=== PATIENT | male | born 1980 | race Caucasian/White ===

== ENCOUNTER 2017-11-27 08:01 | Emergency (ER) | payer OTHER ==
[~2017-11-27 08:01] MED LIST: FIO PO; LOR5 PO; NO ROUTINE MEDS
[2017-11-27] MEDS ORDERED: NS(*) 0.9% 1000 ML BAG 1,000 ML IV ONE (08:15)
--- NOTE | 2017-11-27 08:15 | ER Report ---
History and Physical Time Seen By MD: 08:14 Hx. of Stated Complaint: abdo pain midline sternum to umbilicus 12 days, worsening HPI/ROS 37-year-old male with no medical problems presents with worsening 1-1/2 weeks of burning when he eats in his mid epigastric region. No recent antibiotics. No steroids. No right upper quadrant pain. No fever chills. Has not taken anything for the pain. He also states that he has had worsening reflux in the middle the night. He describes being woken up by midepigastric pain and a taste of vomit in his mouth that wakes him up at night. He said that his diet is okay. Drinks alcohol occasionally. Does not smoke or drink excessive caffeine. Does not take NSAIDs regularly. His never been checked for H. pylori. Allergies: Uncoded Allergies: JEFRY (Allergy, Severe, THROAT SWELLS, 10/29/07) Home Meds Discontinued Reported Medications [No Routine Meds] No Conflict Check 07/06/10 Hx Smoking: No Smoking Status: Never Smoker Hx Substance Use Disorder: No Hx Alcohol Use: Yes Constitutional Vital Sign - Last 24 Hours 11/27/17 11/27/17 11/27/17 11/27/17 08:01 08:06 08:06 08:15 Temp 97.8 Pulse ??? 66 Resp 16 B/P (MAP) 155/110 (125) 155/100 146/108 (121) Pulse Ox 90 O2 Delivery Room Air 11/27/17 11/27/17 11/27/17 11/27/17 08:16 08:30 08:31 08:45 Pulse 72 67 B/P (MAP) 144/101 (115) 146/100 (115) Pulse Ox 91 92 11/27/17 11/27/17 11/27/17 08:46 09:00 09:01 Pulse 66 62 B/P (MAP) 137/111 (120) Pulse Ox 94 91 Intake and Output 11/27/17 11/27/17 11/28/17 15:00 23:00 07:00 Intake Total 1000 ml Balance 1000 ml Physical Exam General Appearance: The patient is alert, has no immediate need for airway protection and no current signs of toxicity. Eyes: Pupils equal and round no injection. Respiratory: Chest is non tender, lungs are clear to auscultation. Cardiac: regular rate and rhythm Gastrointestinal: Abdomen is soft and non tender, no masses, bowel sounds normal. Neck: Neck is supple and non tender. Skin: No rashes or lesions. DIFFERENTIAL DIAGNOSIS: After history and physical exam differential diagnosis was considered for PUD, gallbladder disease, pancreatitis, GERD Medical Decision Making Data Points Result Diagram: 11/27/17 0825 11/27/17 0825 Laboratory Hematology Test 11/27/17 08:13 11/27/17 08:25 Urine Color Yellow Urine Clarity Clear Urine pH 5.0 pH (4.8-9.5) Urine Specific [place] 1.030 Urine Protein Negative mg/dL (NEGATIVE) Urine Glucose (UA) Negative mg/dL (NEGATIVE) Urine Ketones Negative mg/dL (NEGATIVE) Urine Blood Negative (NEGATIVE) Urine Nitrite Negative (NEGATIVE) Urine Bilirubin Negative (NEGATIVE) Urine Urobilinogen 2.0 mg/dL (0.2-1.9) Urine Leukocyte Esterase Negative (NEGATIVE) Urine RBC <1 /HPF (0-2/HPF) Urine WBC 3 /HPF (0-5/HPF) Urine Squamous Epithelial Cells Many /LPF (</=FEW) Urine Bacteria Negative /HPF (NONE-FEW) Urine Mucus Few /HPF (NONE-FEW) Red Blood Count 4.96 M/uL (4.00-5.60) Mean Corpuscular Volume 92.3 fL (80.0-96.0) Mean Corpuscular Hemoglobin 33.8 pg (26.0-33.0) Mean Corpuscular Hemoglobin Concent 36.6 g/dL (32.0-36.0) Red Cell Distribution Width 12.9 % (11.5-14.5) Mean Platelet Volume 8.5 fL (7.2-11.1) Neutrophils (%) (Auto) 59.1 % (39.4-72.5) Lymphocytes (%) (Auto) 28.7 % (17.6-49.6) Monocytes (%) (Auto) 6.5 % (4.1-12.4) Eosinophils (%) (Auto) 4.9 % (0.4-6.7) Basophils (%) (Auto) 0.8 % (0.3-1.4) Nucleated RBC Relative Count (auto) 0.0 /100WBC Neutrophils # (Auto) 3.9 K/uL (2.0-7.4) Lymphocytes # (Auto) 1.9 K/uL (1.3-3.6) Monocytes # (Auto) 0.4 K/uL (0.3-1.0) Eosinophils # (Auto) 0.3 K/uL (0.0-0.5) Basophils # (Auto) 0.0 K/uL (0.0-0.1) Nucleated RBC Absolute Count (auto) 0.00 K/uL Sodium Level 142 mmol/L (137-145) Potassium Level 3.9 mmol/L (3.5-5.0) Chloride Level 105 mmol/L (98-107) Carbon Dioxide Level 26 mmol/L (22-30) Blood Urea Nitrogen 13 mg/dl (9-21) Creatinine 0.90 mg/dl (0.66-1.25) Glomerular Filtration Rate Calc > 60.0 Random Glucose 103 mg/dl (75-110) Calcium Level 8.9 mg/dl (8.4-10.2) Total Bilirubin 0.9 mg/dl (0.2-1.3) Aspartate Amino Transf (AST/SGOT) 38 U/L (0-35) Alanine Aminotransferase (ALT/SGPT) 43 U/L (0-56) Alkaline Phosphatase 55 U/L (0-126) Total Protein 6.9 g/dl (6.3-8.2) Albumin 4.0 g/dl (3.5-5.0) Lipase 101 U/L (23-300) Chemistry Test 11/27/17 08:13 11/27/17 08:25 Urine Color Yellow Urine Clarity Clear Urine pH 5.0 pH (4.8-9.5) Urine Specific [place] 1.030 Urine Protein Negative mg/dL (NEGATIVE) Urine Glucose (UA) Negative mg/dL (NEGATIVE) Urine Ketones Negative mg/dL (NEGATIVE) Urine Blood Negative (NEGATIVE) Urine Nitrite Negative (NEGATIVE) Urine Bilirubin Negative (NEGATIVE) Urine Urobilinogen 2.0 mg/dL (0.2-1.9) Urine Leukocyte Esterase Negative (NEGATIVE) Urine RBC <1 /HPF (0-2/HPF) Urine WBC 3 /HPF (0-5/HPF) Urine Squamous Epithelial Cells Many /LPF (</=FEW) Urine Bacteria Negative /HPF (NONE-FEW) Urine Mucus Few /HPF (NONE-FEW) White Blood Count 6.6 k/uL (4.5-11.0) Red Blood Count 4.96 M/uL (4.00-5.60) Hemoglobin 16.8 g/dL (14.0-18.0) Hematocrit 45.8 % (42.0-52.0) Mean Corpuscular Volume 92.3 fL (80.0-96.0) Mean Corpuscular Hemoglobin 33.8 pg (26.0-33.0) Mean Corpuscular Hemoglobin Concent 36.6 g/dL (32.0-36.0) Red Cell Distribution Width 12.9 % (11.5-14.5) Platelet Count 163 K/uL (150-450) Mean Platelet Volume 8.5 fL (7.2-11.1) Neutrophils (%) (Auto) 59.1 % (39.4-72.5) Lymphocytes (%) (Auto) 28.7 % (17.6-49.6) Monocytes (%) (Auto) 6.5 % (4.1-12.4) Eosinophils (%) (Auto) 4.9 % (0.4-6.7) Basophils (%) (Auto) 0.8 % (0.3-1.4) Nucleated RBC Relative Count (auto) 0.0 /100WBC Neutrophils # (Auto) 3.9 K/uL (2.0-7.4) Lymphocytes # (Auto) 1.9 K/uL (1.3-3.6) Monocytes # (Auto) 0.4 K/uL (0.3-1.0) Eosinophils # (Auto) 0.3 K/uL (0.0-0.5) Basophils # (Auto) 0.0 K/uL (0.0-0.1) Nucleated RBC Absolute Count (auto) 0.00 K/uL Glomerular Filtration Rate Calc > 60.0 Calcium Level 8.9 mg/dl (8.4-10.2) Total Bilirubin 0.9 mg/dl (0.2-1.3) Aspartate Amino Transf (AST/SGOT) 38 U/L (0-35) Alanine Aminotransferase (ALT/SGPT) 43 U/L (0-56) Alkaline Phosphatase 55 U/L (0-126) Total Protein 6.9 g/dl (6.3-8.2) Albumin 4.0 g/dl (3.5-5.0) Lipase 101 U/L (23-300) Urinalysis Test 11/27/17 08:13 Urine Color Yellow Urine Clarity Clear Urine pH 5.0 pH (4.8-9.5) Urine Specific [place] 1.030 Urine Protein Negative mg/dL (NEGATIVE) Urine Glucose (UA) Negative mg/dL (NEGATIVE) Urine Ketones Negative mg/dL (NEGATIVE) Urine Blood Negative (NEGATIVE) Urine Nitrite Negative (NEGATIVE) Urine Bilirubin Negative (NEGATIVE) Urine Urobilinogen 2.0 mg/dL (0.2-1.9) Urine Leukocyte Esterase Negative (NEGATIVE) Urine RBC <1 /HPF (0-2/HPF) Urine WBC 3 /HPF (0-5/HPF) Urine Squamous Epithelial Cells Many /LPF (</=FEW) Urine Bacteria Negative /HPF (NONE-FEW) Urine Mucus Few /HPF (NONE-FEW) ED Course/Re-evaluation ED Course History and physical likely consistent with GERD versus peptic ulcer disease. Not consistent with a perforated viscus. No evidence of gallbladder disease. An H. pylori test was sent. Patient improved with a GI cocktail and Protonix. I encouraged that he start taking Zantac in addition to a PPI daily. He will follow-up with Dr. Queen on the results of his H. pylori test. He did discuss with him that if his symptoms persist in spite of taking an and acid and a PPI, he will likely need an endoscopy for further evaluation. I do not think this is ACS or a PE. He is improving with Dr. gigi Blakely in 2 days. Decision to Disposition Date: Nov 27, 2017 Decision to Disposition Time: 09:27 Depart Departure Latest Vital Signs Vital Signs Date Time Temp Pulse Resp B/P (MAP) Pulse Ox O2 Delivery O2 Flow Rate FiO2 11/27/17 09:01 62 91 11/27/17 09:00 137/111 (120) 11/27/17 08:06 97.8 16 Room Air Impression: Primary Impression: GERD with esophagitis Condition: Improved Disposition: HOME OR SELF-CARE Referrals: MARISSA QUEEN MD (PCP) New Scripts No Active Prescriptions or Reported Meds Patient Instructions: Gastroesophageal Reflux Disease (ED) Additional Instructions: Follow-up with Dr. Queen on the results of your H. Pylori test MAREK SAUCEDO MD Nov 27, 2017 08:15
[2017-11-27 08:48] LABS: PLATELET COUNT, AUTOMATED 163 K/uL (150-450)
[2017-11-27] MEDS ORDERED: PANTOPRAZOLE SOD 40 MG TABEC PO ONE (08:55)
[2017-11-27] MEDS ORDERED: GI COCKTAIL 60 ML BTL PO PRN (08:55)
[2017-11-27] MEDS ORDERED: ATRO/SCOPOL/HYOSCY/PB 5 ML ELX PO ONE (09:00)
[2017-11-27] MEDS ORDERED: LIDOCAINE 2% VISC SLN 15ML UDC PO ONE (09:00)
[2017-11-27] MEDS ORDERED: MAG HYD/AL HYD/SIMETH 30ML UDC PO ONE (09:00)
[2017-11-29] MEDS ORDERED: ESOM40CA42 PO (10:45)
[2017-11-29] MEDS ORDERED: HYOS0.128 PO (10:46)
[2017-12-01] MEDS ORDERED: CLAR-1 PO (17:01)
[2017-12-01] MEDS ORDERED: AMOX-362 PO (17:01)
== END 2017-11-27 09:30 | disposition home or self-care (01) ==
LOC: ER 08:08
DX: K21.0 Gastro-esophageal reflux disease with esophagitis (principal)
CPT/HCPCS: 81001; 83690; 85025; 96360; 99283; J7030; 82040; 82247; 82310; 82374; 82435; 82565; 82947; 84075; 84132; 84155; 84295; 84450; 84460; 84520

== ENCOUNTER → 2017-11-30 | Outpatient (CLI) | payer OTHER ==
[~2017-11-30] MED LIST changes: +AMOX-362 PO; +CLAR-1 PO; +ESOM40CA42 PO; +HYOS0.128 PO
== END ==
LOC: LAB 10:54
PROVIDERS: ATTEND Emergency Medicine
DX: K21.0 Gastro-esophageal reflux disease with esophagitis (principal)
CPT/HCPCS: 87338